=== PATIENT | male | born 1960 | race African-American/Black ===

== ENCOUNTER 2017-06-07 10:42 | Emergency (ER) | payer BC ==
--- NOTE | 2017-06-07 12:21 | RAD ---
CHEST ONE VIEW: History: Dyspnea. Comparison: None. FINDINGS: There is a linear radiopacity in the right middle lobe peripherally. Lungs are otherwise clear. No pn eumothorax or effusion. Cardiac silhouette and mediastinal contours within normal limits. IMPRESSION: Linear opacity in the periphery of the right lower lobe, likely atelectasis. POS: [facility]
[2017-06-07 12:51] LABS: #Basophils 0.1 thou/uL (0.0-0.2); #Eosinphils 0.1 thou/uL (0.0-0.7); #Lymphocytes 0.6 thou/uL (1.20-3.40); #Monocytes 0.6 thou/uL (0.11-0.59); #Neutrophils 5.7 thou/uL (1.40-6.50); %Basophils 0.8 % (0.0-1.0); %Eosinophils 1.5 % (0.0-10.0); %Lymphocytes 8.1 % (21.0-51.0); %Monocytes 8.5 % (0.0-10.0); %Neutrophils 81.1 % (42.0-75.0); Hemoglobin 16.1 g/dL (14.0-18.0); Mean Corpuscular HGB CONC 34.2 g/dL (32.0-36.0); Mean Corpuscular Hemoglobin 31.8 pg (27.0-31.0); Mean Corpuscular Volume 92.8 fl (80.0-94.0); Platelet Count 172 thou/uL (130-400); RBC Distribution Width 11.5 % (11.5-14.5); Red Blood Cell (RBC) Count 5.07 mill/uL (4.70-6.10)
[2017-06-07 13:07] LABS: ALT (SGPT) 21 U/L (8-55); AST (SGOT) 15 U/L (5-34); Alkaline Phosphatase 103 U/L (40-150); Anion Gap 16 mmol/L (10-20); BUN (Urea Nitrogen) 14 mg/dL (8.4-25.7); Bilirubin, Total 0.7 mg/dL (0.2-1.2); Calc. Creatinine Clearance 0 mL/min (70-130); Calcium 9.7 mg/dL (7.8-10.44); Carbon Dioxide 21 mmol/L (22-29); Chloride 103 mmol/L (98-107); Estimated GFR-MDRD 82; Globulin 3.4 g/dL (2.4-3.5); Glucose 295 mg/dL (70-105); Protein, Total 7.4 g/dL (6.0-8.3); Sodium 136 mmol/L (136-145)
[2017-06-07 13:13] LABS: CKMB 0.7 ng/mL (0-6.6); Troponin I Less than 0.010 ng/mL (< 0.028)
== END 2017-06-07 13:55 | disposition home or self-care (01) ==
LOC: ERS 10:42
DX: J18.9 Pneumonia, unspecified organism (principal); E11.9 Type 2 diabetes mellitus without complications; F17.210 Nicotine dependence, cigarettes, uncomplicated; Z79.84 Long term (current) use of oral hypoglycemic drugs
CPT/HCPCS: 36415; 71045; 80053; 82553; 84484; 85025; 93005; 99406

== ENCOUNTER 2017-10-02 09:28 | Emergency (ER) | payer BC ==
[2017-10-02] MEDS ORDERED: Ketorolac Tromethamine 60 MG/2 ML VIAL ONE (09:52)
== END 2017-10-02 10:16 | disposition home or self-care (01) ==
LOC: ERS 09:28
DX: K13.0 Diseases of lips (principal); E78.5 Hyperlipidemia, unspecified; E11.9 Type 2 diabetes mellitus without complications; F17.210 Nicotine dependence, cigarettes, uncomplicated
CPT/HCPCS: 96372; J1885

== ENCOUNTER 2017-10-15 11:41 | Outpatient (CLI) | payer BC | END 2017-10-15 11:42 | disposition home or self-care (01) | LOC: BICRAD 11:41 | PROVIDERS: ATTEND Family Medicine | DX: M54.16 Radiculopathy, lumbar region (principal) ==

== ENCOUNTER 2018-02-01 16:11 | Emergency (ER) | payer BC ==
--- NOTE | 2018-02-01 18:22 | RAD ---
THREE VIEWS LEFT SHOULDER: 02/01/18 HISTORY: Left shoulder pain for three weeks. Left shoulder joint pain. FINDINGS: There is minimal osteoarthritis involving the left acromioclavicular joint. There is no fracture, dis location, or other osseous abnormality. IMPRESSION: Minimal left acromioclavicular joint osteoarthritis. There is no acute osseous abnormality demonstrat ed. POS: [facility]
== END 2018-02-01 17:35 | disposition home or self-care (01) ==
LOC: ERS 16:11
DX: M54.10 Radiculopathy, site unspecified (principal); E78.5 Hyperlipidemia, unspecified; E11.9 Type 2 diabetes mellitus without complications; F17.210 Nicotine dependence, cigarettes, uncomplicated; Z79.84 Long term (current) use of oral hypoglycemic drugs; Z79.899 Other long term (current) drug therapy

== ENCOUNTER 2018-06-17 11:23 | Emergency (ER) | payer BC ==
[2018-06-17 11:56] LABS: #Basophils 0.1 thou/uL (0.0-0.2); #Eosinphils 0.3 thou/uL (0.0-0.7); #Lymphocytes 2.2 thou/uL (1.20-3.40); #Monocytes 0.4 thou/uL (0.11-0.59); #Neutrophils 4.3 thou/uL (1.40-6.50); %Basophils 1.6 % (0.0-1.0); %Lymphocytes 30.4 % (21.0-51.0); %Monocytes 5.5 % (0.0-10.0); %Neutrophils 58.6 % (42.0-75.0); Hemoglobin 14.2 g/dL (14.0-18.0); Mean Corpuscular HGB CONC 32.9 g/dL (32.0-36.0); Mean Corpuscular Hemoglobin 29.9 pg (27.0-31.0); Platelet Count 201 thou/uL (130-400); RBC Distribution Width 12.1 % (11.5-14.5); Red Blood Cell (RBC) Count 4.73 mill/uL (4.70-6.10); White Blood Cell (WBC) Count 7.3 thou/uL (4.8-10.8)
[2018-06-17 12:19] LABS: ALT (SGPT) 15 U/L (8-55); AST (SGOT) 10 U/L (5-34); Albumin 4.1 g/dL (3.5-5.0); Alkaline Phosphatase 92 U/L (40-150); Anion Gap 13 mmol/L (10-20); BUN (Urea Nitrogen) 12 mg/dL (8.4-25.7); Bilirubin, Total 0.5 mg/dL (0.2-1.2); CK (CPK) 93 U/L (30-200); Calc. Creatinine Clearance 0 mL/min (70-130); Calcium 9.7 mg/dL (7.8-10.44); Carbon Dioxide 25 mmol/L (22-29); Chloride 102 mmol/L (98-107); Estimated GFR-MDRD 72; Globulin 3.4 g/dL (2.4-3.5); Glucose 296 mg/dL (70-105); Potassium 4.3 mmol/L (3.5-5.1); Protein, Total 7.5 g/dL (6.0-8.3); Sodium 136 mmol/L (136-145)
--- NOTE | 2018-06-17 12:26 | RAD ---
FRONTAL VIEW CHEST: COMPARISON: 06/07/2017. INDICATION: Chest pain. FINDINGS: There is no consolidation, effusion, or discrete pneumothorax. The cardiac silhouette is normal in s ize. IMPRESSION: No focal consolidation. POS: [facility]
[2018-06-17] MEDS ORDERED: Nitroglycerin 0.4 MG TAB 1 EACH ONE (12:47)
== END 2018-06-17 16:20 | disposition home or self-care (01) ==
LOC: ERS 11:23
DX: R07.9 Chest pain, unspecified (principal); E11.9 Type 2 diabetes mellitus without complications; E78.5 Hyperlipidemia, unspecified; F17.210 Nicotine dependence, cigarettes, uncomplicated
CPT/HCPCS: 36415; 71045; 80053; 82550; 84484; 85025; 85379; 93005; 94760; 96360

== ENCOUNTER 2018-09-01 00:03 | Outpatient (CLI) | payer BC ==
[2018-09-01 11:04] LABS: Hemoglobin 14.6 g/dL (14.0-18.0); Mean Corpuscular HGB CONC 33.6 g/dL (32.0-36.0); Mean Platelet Volume 9.5 fL (7.4-10.4); Platelet Count 239 thou/uL (130-400); RBC Distribution Width 11.6 % (11.5-14.5); Red Blood Cell (RBC) Count 4.72 mill/uL (4.70-6.10); White Blood Cell (WBC) Count 9.6 thou/uL (4.8-10.8)
[2018-09-01 11:24] LABS: Anion Gap 14 mmol/L (10-20); BUN (Urea Nitrogen) 23 mg/dL (8.4-25.7); Calc. Creatinine Clearance 0 mL/min (70-130); Calcium 10.1 mg/dL (7.8-10.44); Carbon Dioxide 27 mmol/L (22-29); Chloride 99 mmol/L (98-107); Estimated GFR-MDRD 68; Glucose 214 mg/dL (70-105); Potassium 3.6 mmol/L (3.5-5.1); Sodium 136 mmol/L (136-145)
--- NOTE | 2018-09-01 21:26 | EKG ---
Test Reason : Blood Pressure : / mmHG Vent. Rate : 106 BPM Atrial Rate : 106 BPM P-R Int : 120 ms QRS Dur : 072 ms QT Int : 342 ms P-R-T Axes : 066 073 048 degrees QTc Int : 454 ms Sinus tachycardia Anterior infarct , age undetermined Abnormal ECG When compared with ECG of 17-JUN-2018 11:32, Nonspecific T wave abnormality, improved in Inferior leads Confirmed by KAROL ROMO, DR. Gresham (4) on 09/01/2018 9:25:47 PM Referred By: DOM Confirmed By:DR. Marga ROBERSON MD
== END 2018-09-01 00:04 | disposition home or self-care (01) ==
LOC: LABBT 00:03
PROVIDERS: ATTEND Neurological Surgery
DX: Z01.818 Encounter for other preprocedural examination (principal); M47.12 Other spondylosis with myelopathy, cervical region
CPT/HCPCS: 80048; 85027; 93005; 93010

== ENCOUNTER 2018-09-05 07:04 | Day surgery (SDC) | payer BC ==
[2018-09-01 09:44] VITALS: BMI 26.4
[2018-09-05] MEDS ORDERED: Sodium Chloride 0.9% 10 ML ONE (07:10)
[2018-09-05] MEDS ORDERED: Fentanyl 100 MCG/2 ML VIAL ONE ×3 (08:15→11:51)
[2018-09-05] MEDS ORDERED: Lidocaine 2% Jelly 5 ML TUBE ONE (09:45)
[2018-09-05] MEDS ORDERED: Fentanyl 250 MCG/5 ML VIAL ONE (09:45)
[2018-09-05] MEDS ORDERED: HYDROmorphone 2 MG/ML VIAL ONE (12:15)
[2018-09-05] MEDS ORDERED: HYDROcodone/Acetaminophen 5/325 mg Tablet ONE (14:17)
[2018-09-05] MEDS ORDERED: Lidocaine 1% PF 5 ML VIAL ONE (15:24)
[2018-09-05] MEDS ORDERED: PHENYLEPHRINE-NS 100 MCG/ML 10 ML SYRINGE ONE (15:24)
[2018-09-05] MEDS ORDERED: Glycopyrrolate 0.2 MG/ML 5 ML SYRINGE ONE (15:24)
[2018-09-05] MEDS ORDERED: Dexamethasone 20 MG/5 ML VIAL ONE (15:24)
[2018-09-05] MEDS ORDERED: Rocuronium Bromide 10 MG/ML (10ML VIAL) ONE (15:24)
[2018-09-05] MEDS ORDERED: PROPOFOL 200 MG/20 ML VIAL ONE (15:24)
[2018-09-05] MEDS ORDERED: Ondansetron PF 4 MG/2 ML Vial ONE (15:24)
[2018-09-05] MEDS ORDERED: Ketorolac Tromethamine 30 MG/ML VIAL ONE (15:24)
--- NOTE | 2018-09-06 08:57 | OP ---
DATE OF PROCEDURE: 09/05/2018 FLOATER OPERATOR: José Gardner PA-C PROCEDURES PERFORMED: Anterior cervical diskectomy at C5-C6 and C6-C7, interbody arthrodesis, intervertebral biomechanical device, local morselized autograft, demineralized bone matrix, anterior titanium instrumentation C4 through C7. DESCRIPTION OF PROCEDURE: The patient was brought to the operating room and intubated. He was positioned supine with the head in modest extension on a gel-filled donut. Incision was made in the right precervical area and dissected medial to the sternocleidomastoid muscle and the level was confirmed by x-ray. We debrided the anterior osteophytes, placed distraction across the disk spaces, and completely decompressed the intervertebral disk, decompressing the spinal cord with particular attention at C6-C7. Next, bony endplates were decorticated for purpose of arthrodesis and appropriate-sized intervertebral biomechanical PEEK device was brought into the field and filled with demineralized bone matrix and local morselized autograft and tapped in place securely at C5-C6 and C6-C7. Next, the anterior plate was brought into the field and secured to C5, C6, and C7 using two 14-mm screws at each level. The wound was then extensively irrigated and maximum hemostasis was secured and the wound was closed in anatomic layers. Job ID: [id number]
== END 2018-09-05 14:47 | disposition home or self-care (01) ==
LOC: SDC 07:04
PROVIDERS: ATTEND Neurological Surgery
PROC: 0RG20A0 Fusion of 2 or more Cervical Vertebral Joints with Interbody Fusion Device, Anterior Approach, Anterior Column, Open Approach (ICD-10-PCS; principal; 2018-09-05)
PROC: 0RB30ZZ Excision of Cervical Vertebral Disc, Open Approach (ICD-10-PCS; principal; 2018-09-05)
DX: M50.022 Cervical disc disorder at C5-C6 level with myelopathy (principal); M47.12 Other spondylosis with myelopathy, cervical region; E11.9 Type 2 diabetes mellitus without complications; E78.5 Hyperlipidemia, unspecified; Z79.84 Long term (current) use of oral hypoglycemic drugs; Z79.899 Other long term (current) drug therapy
CPT/HCPCS: 76000; C1713; C1776; J0131; J1170; J3010; J3490

== ENCOUNTER 2018-09-10 12:26 | Emergency (ER) | payer BC | END 2018-09-10 13:15 | disposition home or self-care (01) | LOC: ERS 12:26 | DX: Z48.817 Encounter for surgical aftercare following surgery on the skin and subcutaneous tissue (principal); E78.5 Hyperlipidemia, unspecified; E11.9 Type 2 diabetes mellitus without complications; F17.210 Nicotine dependence, cigarettes, uncomplicated | CPT/HCPCS: 99282 ==

== ENCOUNTER 2018-09-20 16:04 | Outpatient (CLI) | payer BC ==
--- NOTE | 2018-09-20 16:21 | RAD ---
XR Cerv Sp Ap Lat STANDARD: 09/20/2018 12:00 AM CLINICAL INDICATION: Cervical myelopathy COMPARISON: None. FINDINGS: Fracture:No fracture. There is anterior fusion of C5-C7 with anterior plate, vertebral body screws, and intervening disc sp sam prostheses at C5-6 and C6-7. No acute hardware complication is visualized. Mild multilevel degenerative change. Lateral masses of C1 are appropriately aligned. Imaged aspects o f dens are intact. Incidental findings:Atherosclerosis IMPRESSION: 1. Postoperative cervical spine without acute hardware complication.
== END 2018-09-20 16:05 | disposition home or self-care (01) ==
LOC: TBSIIMAG 16:04
PROVIDERS: ATTEND Neurological Surgery
DX: M47.12 Other spondylosis with myelopathy, cervical region (principal); Z98.890 Other specified postprocedural states
CPT/HCPCS: 72040

== ENCOUNTER 2018-10-07 13:07 | Outpatient (CLI) | payer BC ==
[~2018-10-07 13:07] MED LIST: ISOVUE-370 76%-LOCM 1 ML ONE
--- NOTE | 2018-10-07 14:39 | CT ---
CT ABDOMEN WITH AND WITHOUT IV CONTRAST: 10/07/2018 HISTORY: Left lower quadrant abdominal mass. The patient reports left lower quadrant abdominal pain and swell ing with radiation of symptoms to left flank and hip. FINDINGS: There is linear atelectasis present at the right lung base. The lung bases are otherwise clear. A 1 .8 cm fluid density cyst lesion is seen in the mid portion left kidney, compatible with a cyst. Tiny , subcentimeter, oum-craor-fa-characterize, hypodense lesions are seen in the superior pole right kid zakia and inferior pole left kidney. No enhancing renal lesion is present. The liver, spleen, pancreas, and bilateral adrenal glands demonstrate a normal CT appearance. Vascular calcifications are seen in the abdominal aorta and visualized iliac arteries. There is no e vidence of an aortic dissection. A normal caliber retrocecal appendix is seen. A small to moderate amount of retained material is seen in the visualized colon. Opacified loo ps of small bowel are normal in caliber. No free fluid, fluid collection, or lymphadenopathy is seen in the abdomen. Imaging of the pelvis was not performed with this examination. The osseous structures have a normal appearance with minimal osteophytes present. IMPRESSION: 1. Small left renal cyst. No renal or ureteral calculi are seen bilaterally, and there is no hydron ephrosis. 2. No CT evidence of appendicitis. 3. No acute findings are seen in the abdomen or pelvis. 4. Small to moderate amount of retained fecal material in the colon. 5. Imaging of the pelvis was not performed. POS: [facility]
== END 2018-10-07 13:08 | disposition home or self-care (01) ==
LOC: BICCT 13:07
PROVIDERS: ATTEND Family Medicine
DX: R19.04 Left lower quadrant abdominal swelling, mass and lump (principal); N28.1 Cyst of kidney, acquired
CPT/HCPCS: 74170; Q9966

== ENCOUNTER 2018-11-01 15:58 | Outpatient (CLI) | payer BC ==
--- NOTE | 2018-11-01 16:19 | RAD ---
4 views cervical spine. HISTORY: 58-year-old with history of neck surgery and pain. M47.12. AP, lateral, swimmer's and open-mouth odontoid views cervical spine obtained. Comparison made to previous exam from 09/20/2018. There is ACDF and fusion of the C5,C6 and C7 vertebral levels. Lites and screws are in good position. Anterior osteophytes seen at the C4 level. No significant interval changes noted. IMPRESSION: ACDF in the mid and lower cervical spine.
== END 2018-11-01 15:59 | disposition home or self-care (01) ==
LOC: TBSIIMAG 15:58
PROVIDERS: ATTEND Neurological Surgery
DX: M47.12 Other spondylosis with myelopathy, cervical region (principal); Z98.1 Arthrodesis status
CPT/HCPCS: 72040

== ENCOUNTER 2018-11-23 07:31 | Outpatient (CLI) | payer BC ==
--- NOTE | 2018-11-23 08:42 | MRI ---
MRI Lumbar Spine WO Con HISTORY: Back pain radiating to left hip and left leg COMPARISON: None. FINDINGS: The vertebral bodies are normal in height. Disc space height is well preserved. Disc desicc ation changes are seen at L3-4 and L4-5. There is no significant periaortic adenopathy. There is a T2 hyperintense lesion involving the left k idney statistically most likely a cyst. T12-L1: Unremarkable. L1-2: Unremarkable. L2-3: Unremarkable. L3-4: Small central annular disc tear is present no significant canal or foraminal stenosis. L4-5: Disc bulge is present at this level. No significant canal or foraminal stenosis. L5-S1: No significant disc bulge. No signs of canal or foraminal. IMPRESSION: No signs of canal or foraminal stenosis. Central annular disc tear at L3-4
== END 2018-11-23 07:32 | disposition home or self-care (01) ==
LOC: BICMRI 07:31
PROVIDERS: ATTEND Neurological Surgery
DX: M54.16 Radiculopathy, lumbar region (principal)
CPT/HCPCS: 72148

== ENCOUNTER 2019-01-09 12:26 | Emergency (ER) | payer BC ==
[2019-01-09 15:07] LABS: #Basophils 0.1 thou/uL (0.0-0.2); #Eosinphils 0.2 thou/uL (0.0-0.7); #Lymphocytes 2.5 thou/uL (1.20-3.40); #Monocytes 0.6 thou/uL (0.11-0.59); #Neutrophils 5.1 thou/uL (1.40-6.50); %Basophils 1.2 % (0.0-1.0); %Eosinophils 2.7 % (0.0-10.0); %Lymphocytes 29.5 % (21.0-51.0); %Monocytes 6.6 % (0.0-10.0); Mean Corpuscular HGB CONC 34.2 g/dL (32.0-36.0); Mean Corpuscular Hemoglobin 30.6 pg (27.0-31.0); Mean Corpuscular Volume 89.4 fL (78.0-98.0); Mean Platelet Volume 9.4 fL (7.4-10.4); Platelet Count 189 thou/uL (130-400); RBC Distribution Width 11.4 % (11.5-14.5); Red Blood Cell (RBC) Count 4.58 mill/uL (4.70-6.10); White Blood Cell (WBC) Count 8.5 thou/uL (4.8-10.8)
[2019-01-09 15:29] LABS: ALT (SGPT) 7 U/L (8-55); AST (SGOT) 10 U/L (5-34); Alkaline Phosphatase 112 U/L (40-150); Anion Gap 15 mmol/L (10-20); BUN (Urea Nitrogen) 18 mg/dL (8.4-25.7); Bilirubin, Total 0.4 mg/dL (0.2-1.2); Calc. Creatinine Clearance 0 mL/min (70-130); Calcium 10.6 mg/dL (7.8-10.44); Carbon Dioxide 24 mmol/L (22-29); Chloride 101 mmol/L (98-107); Estimated GFR-MDRD 73; Globulin 3.8 g/dL (2.4-3.5); Glucose 347 mg/dL (70-105); Potassium 4.4 mmol/L (3.5-5.1); Protein, Total 7.8 g/dL (6.0-8.3); Sodium 136 mmol/L (136-145)
--- NOTE | 2019-01-09 16:15 | CT ---
CT BRAIN WITHOUT CONTRAST: HISTORY: Headache worsened by bending. FINDINGS: There are no previous exams for comparison. No evidence of acute infarct, hemorrhage, midline shift, or abnormal extraaxial fluid collections is seen. The ventricular size is appropriate and the basilar cisterns patent. The bony calvarium is in tact. The visualized paranasal sinuses and mastoid air cells are well aerated. IMPRESSION: No CT evidence of acute intracranial process. POS: [facility]
== END 2019-01-09 16:58 | disposition home or self-care (01) ==
LOC: ERS 12:26
DX: R60.0 Localized edema (principal); E11.65 Type 2 diabetes mellitus with hyperglycemia; E78.5 Hyperlipidemia, unspecified; F17.210 Nicotine dependence, cigarettes, uncomplicated; Z79.84 Long term (current) use of oral hypoglycemic drugs
CPT/HCPCS: 36415; 70450; 80053; 83880; 85025

== ENCOUNTER 2019-01-17 10:42 | Outpatient (CLI) | payer BC ==
--- NOTE | 2019-01-17 13:05 | RAD ---
LEFT HIP TWO VIEWS: 01/17/19 HISTORY: Arthralgia of the left hip. FINDINGS/IMPRESSION: No fracture, dislocation, or bony destruction seen. Mild degenerative changes are present. POS: [facility]
== END 2019-01-17 10:43 | disposition home or self-care (01) ==
LOC: BICRAD 10:42
PROVIDERS: ATTEND Family Medicine
DX: M25.552 Pain in left hip (principal); M16.12 Unilateral primary osteoarthritis, left hip

== ENCOUNTER 2019-02-03 09:47 | Outpatient (CLI) | payer BC ==
--- NOTE | 2019-02-03 11:45 | RAD ---
LEFT FEMUR 2 VIEWS: INDICATION: Left leg pain. COMPARISON: None. IMPRESSION: No acute fracture or subluxation is evident. Soft tissues are normal-appearing. There is mild degen erative arthrosis of the left hip. POS: [facility]
== END 2019-02-03 09:48 | disposition home or self-care (01) ==
LOC: BICRAD 09:47
PROVIDERS: ATTEND Family Medicine
DX: M79.652 Pain in left thigh (principal); M16.12 Unilateral primary osteoarthritis, left hip
CPT/HCPCS: 36415; 80061; 80076; 82947; 83036

== ENCOUNTER 2019-04-17 10:34 | Observation (INO) | payer BC ==
[2019-04-17] MEDS ORDERED: Aspirin Chewable 81 MG TAB ONE (10:57)
[2019-04-17 11:01] LABS: #Basophils 0.1 thou/uL (0.0-0.2); #Eosinphils 0.3 thou/uL (0.0-0.7); #Lymphocytes 2.5 thou/uL (1.20-3.40); #Monocytes 0.6 thou/uL (0.11-0.59); #Neutrophils 4.8 thou/uL (1.40-6.50); %Basophils 0.8 % (0.0-1.0); %Eosinophils 3.6 % (0.0-10.0); %Lymphocytes 30.1 % (21.0-51.0); %Monocytes 7.3 % (0.0-10.0); %Neutrophils 58.3 % (42.0-75.0); Hemoglobin 12.2 g/dL (14.0-18.0); Mean Corpuscular HGB CONC 34.3 g/dL (32.0-36.0); Mean Corpuscular Hemoglobin 30.8 pg (27.0-31.0); Mean Corpuscular Volume 89.7 fL (78.0-98.0); Mean Platelet Volume 8.9 fL (7.4-10.4); Platelet Count 232 thou/uL (130-400); RBC Distribution Width 11.2 % (11.5-14.5); Red Blood Cell (RBC) Count 3.96 mill/uL (4.70-6.10); White Blood Cell (WBC) Count 8.2 thou/uL (4.8-10.8)
--- NOTE | 2019-04-17 11:11 | RAD ---
Exam: Chest one view HISTORY:Chest Comparison: 06/17/2018 FINDINGS: Cardiac silhouette: Normal Aorta: Unremarkable Pulmonary vessels: Normal Costophrenic angles: Clear LUNGS: No masses or consolidation. Pneumothorax: None Osseous abnormalities: None IMPRESSION: No acute cardiopulmonary process.
[2019-04-17 11:33] LABS: ALT (SGPT) 11 U/L (8-55); AST (SGOT) 12 U/L (5-34); Albumin 4.3 g/dL (3.5-5.0); Alkaline Phosphatase 83 U/L (40-110); Anion Gap 11 mmol/L (10-20); BUN (Urea Nitrogen) 21 mg/dL (8.4-25.7); Bilirubin, Total 0.6 mg/dL (0.2-1.2); CK (CPK) 78 U/L (30-200); Calc. Creatinine Clearance 0 mL/min (70-130); Calcium 9.8 mg/dL (7.8-10.44); Carbon Dioxide 27 mmol/L (22-29); Chloride 103 mmol/L (98-107); Estimated GFR-MDRD 84; Globulin 3.2 g/dL (2.4-3.5); Glucose 217 mg/dL (70-105); Lipase 62 U/L (8-78); Potassium 3.9 mmol/L (3.5-5.1); Protein, Total 7.5 g/dL (6.0-8.3); Sodium 137 mmol/L (136-145)
[2019-04-17] MEDS ORDERED: Dextrose 50% Abboject 50 ML SYRINGE SLOW IVP PRN (13:10)
[2019-04-17] MEDS ORDERED: Dextrose 5% in Water 1,000 ML IV PRN (13:10)
[2019-04-17] MEDS ORDERED: HumaLOG 300 UNITS/3 ML VIAL SC PRN (13:10)
[2019-04-17] MEDS ORDERED: Gabapentin 300 MG CAP PO PRN (13:11)
--- NOTE | 2019-04-17 13:49 | HP ---
PRIMARY CARE PROVIDER: Jonathan Darby MD. The patient referred to the [facility] Hospitalist Service by [facility] for chest pain rule out MA. The patient has a vague right-sided chest pain that goes into his right shoulder blade. He states it has been present continuously for a week. He states it is similar to a left-sided chest pain that he had previously which required a C-spine surgery. He notes no radiation except as described. He has had no nausea with it. No shortness of breath. No chills or sweats. PAST MEDICAL HISTORY: Pertinent for diabetes mellitus type 2, high cholesterol. CURRENT MEDICATIONS: 1. Metformin 500 mg twice a day. 2. Glipizide 10 mg twice a day. 3. Gabapentin 400 mg twice a day. 4. Atorvastatin 20 mg two a day. 5. Januvia 100 mg once a day. ALLERGIES: NO KNOWN DRUG ALLERGIES. PAST SURGICAL HISTORY: C5-C6, C6-C7 diskectomy etc, in August of this year. FAMILY HISTORY: Mother and father had diabetes. Mother had heart failure. SOCIAL HISTORY: . Smokes half a pack a day. Occasional alcohol. Full code status. , next of kin. REVIEW OF SYSTEMS: GENERAL: He says he has had occasional night sweats lifelong. No headaches or dizziness. EYES: Nearsighted. No double vision or blurred vision. EARS, NOSE AND THROAT: No ear pain or drainage. No nasal bleeding. No trouble swallowing. CARDIAC: See present illness. RESPIRATION: No cough, wheezing, or asthma. GASTROINTESTINAL: He has occasional diarrhea, which he relates to his metformin. No nausea, vomiting, or abdominal pain. GENITOURINARY: No hematuria, dysuria, or nocturia. MUSCULOSKELETAL: He has pain in his left thigh that radiates into his low back. He has had a lumbar MRI, has some arthritis there. NEUROLOGICAL: Post C-spine surgery for cervical radiculopathy. PSYCHIATRIC: No anxiety or depression. SKIN: No bruising, bleeding, or rash. HEME/LYMPH: No tender or swollen lymph nodes in the axilla, inguinal, or cervical area. PHYSICAL EXAMINATION: GENERAL: Alert, oriented, pleasant, cooperative man in no distress. VITAL SIGNS: Blood pressure 112/70, pulse 89, respirations 18, and temperature 98.2. HEAD, EYES, EARS, NOSE, AND THROAT: Reveal pupils are equal, round, and reactive to light. Extraocular movements are intact. Sclerae are white. Tympanic membranes clear. Nose is clear. Oral mucous membranes are wet. Dental hygiene is adequate. NECK: Supple without jugular venous distention, adenopathy, or thyromegaly. CHEST: Clear to auscultation and percussion. HEART: Regular rate and rhythm. First and second second heart sounds are clear. There are no appreciated murmurs or gallops. ABDOMEN: Soft. Bowel sounds are normal. There is no hepatosplenomegaly. No mass. No rebound. EXTREMITIES: No cyanosis, clubbing, or edema. Pulses, carotid, radial, femoral, and dorsalis pedis pulses intact. SKIN: Warm and dry. No bruises. No rash. HEME/LYMPH: No tender or swollen lymph nodes, axilla, inguinal, or cervical area. NEUROLOGICAL: Cranial nerves 2 through 12 are intact. Moves all extremities. Deep tendon reflexes markedly diminished. DIAGNOSTIC DATA: EKG, regular sinus rhythm, poor R-wave progression in the precordial leads, no acute ST-T abnormality reviewed by me. Chest x-ray, no cardiomegaly, CHF, or infiltrate reviewed by myself. LABORATORY DATA: CBC; hemoglobin 12.2, white count 8.2, platelet count 232,000. Comprehensive metabolic profile normal except for a blood sugar of 217. BNP normal. Troponin normal. ADMITTING DIAGNOSES: 1. Atypical chest pain, suspect related to previous C5-C6, C6-C7 radiculopathy and surgical problems; however, with his history of elevated blood sugars, elevated cholesterol, smoking history, we will do a nuclear medicine Cardiolite stress test. 2. Diabetes mellitus type 2 with peripheral neuropathy. 3. Dyslipidemia. 4. Cervical radiculopathy. Job ID: [id number]
--- NOTE | 2019-04-17 13:54 | ULT ---
EXAM: US Gallbladder RUQ CLINICAL HISTORY: Right upper quadrant pain. COMPARISON: None. FINDINGS: Pancreas: Limited evaluation due to bowel gas. The head of pancreas is grossly unremarkable Liver:Normal echotexture. No hepatic masses or intrahepatic biliary dilatation. Right hepatic lobe me asures 15.2 cm Gallbladder: No sonographic evidence of cholelithiasis, gallbladder wall thickening or pericholecysti c fluid. Clemente's sign:Negative Portal Vein: Patent. Appropriate directional flow Bile ducts: CBD diameter is 0.3 cm Right kidney: No hydronephrosis. Right kidney measures 10.2 cm in length. IMPRESSION: Unremarkable exam.
[2019-04-17 14:10] LABS: Troponin I Less than 0.010 ng/mL (< 0.028)
[2019-04-17] MEDS ORDERED: HYDROcodone/Acetaminophen 10/325 mg Tablet PO PRN (16:27)
[2019-04-17 16:43] VITALS: BMI 23.6
[2019-04-17] MEDS: glyBURIDE 5 MG TAB PO SCH (20:58)
[2019-04-18] MEDS ORDERED: Aspirin 325 mg Enteric Coated Tablet PO SCH (09:00)
[2019-04-18] MEDS ORDERED: Famotidine 20 MG TAB PO SCH (09:00)
[2019-04-18] MEDS ORDERED: ADENOSINE 60 MG/20 ML VIAL ONE (10:42)
[2019-04-18] MEDS: glyBURIDE 5 MG TAB PO SCH (11:08)
--- NOTE | 2019-04-18 11:34 | NM ---
CARDIAC SPECT: HISTORY: A 58-year-old black male with chest pain, diabetes and dyslipidemia. TECHNIQUE: A myocardial perfusion scan was performed using the single isotope one day protocol with technetium 9 9m sestamibi, and 10 millicuries was injected intravenously for the rest exam followed by 32 millicur ies for the stress study. Pharmacologic stress with adenosine was monitored and interpreted by Dr. Phillip bahena. FINDINGS: Fairly homogeneous tracer distribution is seen in the myocardial segments on stress and rest images w ithout fixed or reversible defects. The left ventricular cavity appears larger on stress compared to rest with an TID ratio of 1.36. GATED SPECT LVEF: 56%. IMPRESSION: TID ratio is 1.36. POS: [facility]
[2019-04-18 12:10] VITALS: BP 116/69; TEMP 97.7
--- NOTE | 2019-04-18 14:47 | DIS ---
DATE OF ADMISSION: 04/17/2019 DATE OF DISCHARGE: 04/18/2019 PRIMARY CARE PROVIDER: Dr. Jonathan Darby. FINAL DIAGNOSES: Noncardiac chest pain, cervical radiculopathy, diabetes mellitus type 2, dyslipidemia, and tobacco abuse. DISCHARGE MEDICINES: Same as home medicines; 1. Hydrocodone 10/325 one t.i.d. p.r.n. pain. 2. Metformin 500 mg twice a day. 3. Glyburide 5 mg p.o. b.i.d. 4. Gabapentin 300 mg p.o. q.i.d. 5. Famotidine 10 mg p.o. daily p.r.n. 6. Lipitor 20 mg a day. ALLERGIES: NO KNOWN DRUG ALLERGIES. DIET: Diabetic. PENDING AT THE TIME OF DISCHARGE: Nothing. CODE STATUS: Full. HOSPITAL COURSE: The patient with a history of recent cervical radiculopathy with an anterior diskectomy C5-6 and C6-7, interbody arthrodesis, etc. in August of this year with similar symptoms on the right side, presents with some right chest numbness and tingling radiating to the back of the neck. His EKG and laboratory were unremarkable for coronary artery disease. However, because of his multiple risk factors, nuclear medicine cardiac stress test was done. He had no reversible changes, LVEF of 56%. No evidence of ischemic change at this time. His vital signs are stable. Blood sugars well controlled. His cardiorespiratory exam is normal. He is being discharged to follow up with Dr. Curtis about possible workup of his C5 through C7 radiculopathy postoperatively. He has been advised to quit smoking because of his multiple risk factors for coronary artery disease. 1. Male. 2. Diabetes. 3. Elevated cholesterol. 4. Tobacco abuse. He will also should follow up with his PCP for monitoring of his blood pressure, diabetes, etc. No consultations. No procedures. Job ID: [id number]
[2019-04-18] MEDS ORDERED: Atorvastatin Calcium 20 MG TAB PO SCH (21:00)
== END 2019-04-18 14:55 | disposition home or self-care (01) ==
LOC: ERS 10:34 → 2SW 13:10
PROVIDERS: ADMIT Internal Medicine; ATTEND Internal Medicine
DX: R07.89 Other chest pain (principal); M54.12 Radiculopathy, cervical region; E11.42 Type 2 diabetes mellitus with diabetic polyneuropathy; E78.5 Hyperlipidemia, unspecified; F17.210 Nicotine dependence, cigarettes, uncomplicated; E78.00 Pure hypercholesterolemia, unspecified; Z79.84 Long term (current) use of oral hypoglycemic drugs; Z79.899 Other long term (current) drug therapy; Z98.1 Arthrodesis status
CPT/HCPCS: 36415; 36416; 71045; 76705; 78452; 80053; 82550; 83690; 83880; 84484; 85025; 85379; 93005; 93017; 94760; 96360; A9500; G0378

== ENCOUNTER 2019-10-12 11:05 | Outpatient (CLI) | payer BC, OTHER ==
[2019-10-12 13:16] LABS: #Basophils 0.1 thou/uL (0.0-0.2); #Eosinphils 0.3 thou/uL (0.0-0.7); #Lymphocytes 2.6 thou/uL (1.20-3.40); #Monocytes 0.6 thou/uL (0.11-0.59); #Neutrophils 6.5 thou/uL (1.40-6.50); %Basophils 1.1 % (0.0-1.0); %Eosinophils 3.2 % (0.0-10.0); %Lymphocytes 25.6 % (21.0-51.0); %Monocytes 5.7 % (0.0-10.0); %Neutrophils 64.4 % (42.0-75.0); Hemoglobin 12.6 g/dL (14.0-18.0); Mean Corpuscular HGB CONC 32.9 g/dL (32.0-36.0); Mean Corpuscular Hemoglobin 30.8 pg (27.0-31.0); Mean Corpuscular Volume 93.8 fL (78.0-98.0); Mean Platelet Volume 9.4 fL (7.4-10.4); Platelet Count 241 thou/uL (130-400); RBC Distribution Width 12.6 % (11.5-14.5); Red Blood Cell (RBC) Count 4.09 mill/uL (4.70-6.10); White Blood Cell (WBC) Count 10.1 thou/uL (4.8-10.8)
[2019-10-12 13:35] LABS: Anion Gap 14 mmol/L (10-20); BUN (Urea Nitrogen) 19 mg/dL (8.4-25.7); Calc. Creatinine Clearance 0 mL/min (70-130); Carbon Dioxide 23 mmol/L (22-29); Chloride 102 mmol/L (98-107); Estimated GFR-MDRD 64; Glucose 239 mg/dL (70-105); Potassium 4.1 mmol/L (3.5-5.1); Sodium 135 mmol/L (136-145)
--- NOTE | 2019-10-12 17:38 | EKG ---
Test Reason : Blood Pressure : / mmHG Vent. Rate : 089 BPM Atrial Rate : 089 BPM P-R Int : 122 ms QRS Dur : 072 ms QT Int : 340 ms P-R-T Axes : 058 034 -03 degrees QTc Int : 413 ms Normal sinus rhythm Normal ECG When compared with ECG of 17-APR-2019 10:44, (Unconfirmed) Criteria for Septal infarct are no longer Present T wave inversion now evident in Inferior leads T wave amplitude has increased in Lateral leads Confirmed by KAROL ROMO, DR. Gresham (4) on 10/12/2019 5:38:24 PM Referred By: TERE Confirmed By:DR. Marga ROBERSON MD
[2019-10-12 18:37] LABS: SARS-CoV-2 MS2 Positive; SARS-CoV-2 N Gene Negative; SARS-CoV-2 S Gene Negative; SARS-CoV-2 orf1ab Negative
== END 2019-10-12 11:06 | disposition home or self-care (01) ==
LOC: LABBT 11:05
PROVIDERS: ATTEND Specialist
DX: Z01.818 Encounter for other preprocedural examination (principal); Z11.59 Encounter for screening for other viral diseases
CPT/HCPCS: 80048; 85025; 87635; 93005; 93010; U0003

== ENCOUNTER 2019-10-16 06:51 | Day surgery (SDC) | payer BC ==
[2019-10-12 11:33] VITALS: BMI 25.7
--- NOTE | 2019-10-16 06:59 | HP ---
HISTORY OF PRESENT ILLNESS: Joesph Gandhi is a 59-year-old black male patient, who is followed by Dr. Jonathan Ramírez. Patient has had previous incision and drainage, excision of a scrotal process. This is over 2 years ago. He has had persistent drainage and discomfort in base of scrotum, perineum, right buttocks, and left buttocks and chronic open wound, left buttocks. Examination in the office reveals that there is a chronically indurated tract extending from the base of the scrotum on the right to the right buttocks with multiple purulent sinuses draining. He has an open wound over his left buttocks. This did not communicate with the anus. This almost appears hidradenitis in appearance. He denies any drainage. Patient is a diabetic. PAST MEDICAL HISTORY: Diabetes mellitus. PAST SURGICAL HISTORY: Noncontributory, except for office excision of the scrotal mass. SOCIAL HISTORY: He smokes a half pack or less a day. Alcohol, occasionally. Patient is employed in maintenance. MEDICATIONS: 1. Atorvastatin. 2. Metformin. 3. Glyburide. ALLERGIES: NONE. REVIEW OF SYSTEMS: 10-point noncontributory. PHYSICAL EXAMINATION: VITAL SIGNS: 134/74, 97, 97 degrees. HEAD, EARS, EYES, NOSE, and THROAT: Unremarkable. LUNGS: Clear to auscultation. CARDIAC: Regular rate and rhythm, without murmur or gallop. ABDOMEN: Soft and nontender. EXTREMITIES: Unremarkable. Base of scrotum to right of midline perineum into the right buttocks, there is a chronic sinus tract with multiple openings, purulent drainage. He has a small, 1.5 cm opening of his left buttocks medially without apparent sinus on palpation. There is no redness. It is tender, however. ASSESSMENT AND PLAN: Probably hidradenitis suppurativa with chronic draining sinus. We would recommend excision and healing by secondary intention. We will plan this as an outpatient next week. He understands risks and benefits and consents. Job ID: [id number]
[2019-10-16] MEDS ORDERED: Clindamycin/D5W 600 mg/50 ml Premix Bag ONE (07:22)
--- NOTE | 2019-10-16 07:38 | RAD ---
Chest 2 views HISTORY: Preop. COMPARISON: 04/17/2019. FINDINGS: Cardiac silhouette and pulmonary vasculature are unremarkable. Mediastinum is midline. No c onfluent airspace consolidation or evidence of pneumothorax. Postoperative changes cervical spine. IMPRESSION : No active cardiopulmonary abnormalities are demonstrated.
[2019-10-16] MEDS ORDERED: Fentanyl 100 MCG/2 ML VIAL ONE (07:42)
[2019-10-16] MEDS ORDERED: Bupivacaine PF 0.5% 30 ML VIAL ONE (09:28)
[2019-10-16] MEDS ORDERED: Lidocaine 2% w/Epinephrine 1:200K 20 ML VIAL ONE (09:28)
[2019-10-16] MEDS ORDERED: Bupivacaine 0.25% HCL 30 ML VIAL ONE (10:08)
[2019-10-16] MEDS ORDERED: Ondansetron PF 4 MG/2 ML Vial ONE (10:42)
[2019-10-16] MEDS ORDERED: Lidocaine 1% PF 5 ML VIAL ONE (10:42)
[2019-10-16] MEDS ORDERED: Rocuronium Bromide 10 MG/ML (10ML VIAL) ONE (10:42)
[2019-10-16] MEDS ORDERED: Esmolol 100 MG/10 ML VIAL ONE (10:42)
[2019-10-16] MEDS ORDERED: PHENYLEPHRINE-NS 100 MCG/ML 10 ML SYRINGE ONE (10:42)
[2019-10-16] MEDS ORDERED: Glycopyrrolate 0.2 MG/ML 5 ML SYRINGE ONE (10:42)
[2019-10-16] MEDS ORDERED: PROPOFOL 200 MG/20 ML VIAL ONE (10:42)
[2019-10-16] MEDS ORDERED: Dexamethasone 20 MG/5 ML VIAL ONE (10:42)
[2019-10-16] MEDS ORDERED: HYDROcodone/Acetaminophen 5/325 mg Tablet ONE (13:33)
--- NOTE | 2019-10-16 18:55 | OP ---
DATE OF PROCEDURE: 10/16/2019 PREOPERATIVE DIAGNOSES: Hidradenitis suppurativa, right para scrotal, right paramedian perineum, right perianal, and right buttocks; and a 3 cm lesion left buttocks, chronic nonhealing. ANESTHESIA: General, local 0.25% Marcaine 60 mL, 0.5% Xylocaine with epinephrine 20 mL, total volume mixture used. PROCEDURE PERFORMED: Excision of skin and subcutaneous tissue hidradenitis suppurativa 14 x 5 cm right scrotal base, perineum, right buttocks. Wound partially closed with 3-0 chromic suture, left open otherwise. Left buttock wound open. DESCRIPTION OF PROCEDURE: The patient was taken to the operating room, where under general anesthesia in the dorsal lithotomy position, buttocks, perianal, perineum, scrotum, penis, and thighs prepared with Betadine and draped in routine fashion. Excision of skin and subcutaneous tissue sharply with 10 blade scalpel in the areas described. Excising underlying subcutaneous purulent tract, chronic sinuses. Gaining hemostasis with the cautery. We irrigated the wound and infiltrated local anesthetic for postoperative pain control. Wound partially closed approximating the superior para scrotal wound with interrupted 3-0 chromic with wound partially left open right buttocks and perineum. Wound packed open, there was a smaller wound in the left buttocks, chronically present, excised. Hemostasis was gained with cautery, left open. The patient tolerated the procedure well. Job ID: [id number]
== END 2019-10-16 13:35 | disposition home or self-care (01) ==
LOC: SDC 06:51
PROVIDERS: ATTEND Specialist
PROC: 0JB90ZZ Excision of Buttock Subcutaneous Tissue and Fascia, Open Approach (ICD-10-PCS; principal; 2019-10-16)
PROC: 0JBB0ZZ Excision of Perineum Subcutaneous Tissue and Fascia, Open Approach (ICD-10-PCS; principal; 2019-10-16)
DX: L73.2 Hidradenitis suppurativa (principal); N49.2 Inflammatory disorders of scrotum; L02.31 Cutaneous abscess of buttock; E11.9 Type 2 diabetes mellitus without complications; E78.5 Hyperlipidemia, unspecified; F17.210 Nicotine dependence, cigarettes, uncomplicated; Z79.84 Long term (current) use of oral hypoglycemic drugs; Z79.899 Other long term (current) drug therapy; Z98.1 Arthrodesis status
CPT/HCPCS: 71046; 88305; J1100; J2001; J2405; J2704; J3010; J3490; S0020

== ENCOUNTER 2021-08-29 14:23 | Outpatient (CLI) | payer BC | END 2021-08-29 14:24 | disposition home or self-care (01) | LOC: BICRAD 14:23 | PROVIDERS: ATTEND Family Medicine | DX: R07.89 Other chest pain (principal) | CPT/HCPCS: 71046 ==

== ENCOUNTER 2021-10-27 11:03 | Emergency (ER) | payer BC | END 2021-10-27 12:17 | disposition home or self-care (01) | LOC: ERS 11:03 | DX: J06.9 Acute upper respiratory infection, unspecified (principal); Z79.899 Other long term (current) drug therapy; Z79.84 Long term (current) use of oral hypoglycemic drugs; E78.5 Hyperlipidemia, unspecified; E11.9 Type 2 diabetes mellitus without complications; F17.210 Nicotine dependence, cigarettes, uncomplicated | CPT/HCPCS: 71045; 93005; 94640; J7620 ==

== ENCOUNTER 2021-11-04 10:04 | Emergency (ER) | payer BC ==
[2021-11-04] MEDS ORDERED: predniSONE 20 MG TAB ONE (11:40)
== END 2021-11-04 11:54 | disposition home or self-care (01) ==
LOC: ERS 10:04
DX: J18.9 Pneumonia, unspecified organism (principal); E78.5 Hyperlipidemia, unspecified; E11.9 Type 2 diabetes mellitus without complications; F17.210 Nicotine dependence, cigarettes, uncomplicated; Z20.822 Contact with and (suspected) exposure to COVID-19; Z79.84 Long term (current) use of oral hypoglycemic drugs; Z79.899 Other long term (current) drug therapy
CPT/HCPCS: 71045; J7512; U0003; U0005

== ENCOUNTER 2022-05-21 15:01 | Inpatient (IN) | payer BC ==
[~2022-05-21 15:01] MED LIST changes: -ISOVUE-370 76%-LOCM 1 ML ONE; +Iopamidol-370 76% 500 ML 1 ML ONE
[2022-05-21 15:54] LABS: #Eosinphils 0.2 thou/uL (0.0-0.7); #Lymphocytes 0.9 thou/uL (1.20-3.40); #Monocytes 0.7 thou/uL (0.11-0.59); #Neutrophils 5.1 thou/uL (1.40-6.50); %Eosinophils 2.6 % (0.0-10.0); %Lymphocytes 13.3 % (21.0-51.0); %Monocytes 9.9 % (0.0-10.0); %Neutrophils 74.2 % (42.0-75.0); Hemoglobin 13.3 g/dL (14.0-18.0); Mean Corpuscular HGB CONC 32.2 g/dL (32.0-36.0); Mean Corpuscular Hemoglobin 29.2 pg (27.0-31.0); Mean Corpuscular Volume 90.6 fl (78.0-98.0); Mean Platelet Volume 9.5 fL (7.4-10.4); Platelet Count 163 10x3/uL (130-400); RBC Distribution Width 12.6 % (11.5-14.5); Red Blood Cell (RBC) Count 4.55 mill/uL (4.70-6.10); White Blood Cell (WBC) Count 6.9 10x3/uL (4.8-10.8)
[2022-05-21 16:21] LABS: ALT (SGPT) 18 U/L (8-55); AST (SGOT) 17 U/L (5-34); Albumin 4.1 g/dL (3.4-4.8); Alkaline Phosphatase 99 U/L (40-110); Anion Gap 13 mmol/L (10-20); BUN (Urea Nitrogen) 14 mg/dL (8.4-25.7); Bilirubin, Total 0.5 mg/dL (0.2-1.2); Calc. Creatinine Clearance 0 mL/min (70-130); Calcium 9.6 mg/dL (7.8-10.44); Carbon Dioxide 25 mmol/L (23-31); Chloride 99 mmol/L (98-107); Estimated GFR 52; Globulin 3.9 g/dL (2.4-3.5); Glucose 210 mg/dL (80-115); Potassium 4.2 mmol/L (3.5-5.1); Sodium 133 mmol/L (136-145)
[2022-05-21] MEDS ORDERED: cefTRIAXone\\ROCEPHIN 2 GM VIAL ONE (17:08)
[2022-05-21] MEDS ORDERED: Azithromycin 500 MG VIAL ONE (17:08)
[2022-05-21] MEDS ORDERED: Acetaminophen 325 MG TAB PO PRN (18:12)
[2022-05-21] MEDS ORDERED: Senokot S 8.6-50 MG TAB PO PRN (18:12)
[2022-05-21] MEDS ORDERED: Ondansetron ODT 4 MG TAB PO PRN (18:12)
[2022-05-21 18:56] LABS: Lactic Acid 2.5 mmol/L (0.5-2.2)
[2022-05-21 19:20] LABS: SARS-CoV-2 NAA Rapid Test DETECTED (NotDetected)
[2022-05-21] MEDS ORDERED: Acetaminophen 500 MG TAB ONE (19:28)
[2022-05-21] MEDS: Famotidine 20 MG TAB PO SCH (20:59)
[2022-05-21] MEDS: Atorvastatin Calcium 20 MG TAB PO SCH (20:59)
[2022-05-21] MEDS: Gabapentin 300 MG CAP PO SCH (21:00)
[2022-05-21] MEDS: metFORMIN 500 MG TAB PO SCH (21:00)
[2022-05-21] MEDS: Nicotine 14 MG PATCH TD SCH (21:16)
[2022-05-21 21:24] VITALS: BMI 25.7
[2022-05-21] MEDS ORDERED: REMDESIVIR 200 MG in Sodium Chloride 0.9% 250 ML 210 ML IV SCH (21:30)
[2022-05-22] MEDS: Albuterol 200 PUFF (6.7GM INHALER) INH SCH ×4 (00:34→18:24)
[2022-05-22] MEDS ORDERED: Dextrose 5% in Water 1,000 ML IV PRN (04:45)
[2022-05-22] MEDS ORDERED: HumaLOG 300 UNITS/3 ML VIAL SC PRN ×2 (04:45)
[2022-05-22] MEDS ORDERED: Dextrose 50% Abboject 50 ML SYRINGE IVP PRN (04:45)
[2022-05-22 07:03] LABS: #Basophils 0.1 thou/uL (0.0-0.2); #Eosinphils 0.5 thou/uL (0.0-0.7); #Lymphocytes 1.2 thou/uL (1.20-3.40); #Monocytes 0.8 thou/uL (0.11-0.59); #Neutrophils 3.6 thou/uL (1.40-6.50); %Eosinophils 8.7 % (0.0-10.0); %Lymphocytes 19.4 % (21.0-51.0); %Monocytes 12.6 % (0.0-10.0); %Neutrophils 58.2 % (42.0-75.0); Hemoglobin 12.1 g/dL (14.0-18.0); Mean Corpuscular HGB CONC 31.9 g/dL (32.0-36.0); Mean Corpuscular Hemoglobin 29.4 pg (27.0-31.0); Mean Corpuscular Volume 92.3 fl (78.0-98.0); Platelet Count 141 10x3/uL (130-400); RBC Distribution Width 12.4 % (11.5-14.5); Red Blood Cell (RBC) Count 4.12 mill/uL (4.70-6.10); White Blood Cell (WBC) Count 6.2 10x3/uL (4.8-10.8)
[2022-05-22 07:13] LABS: Anion Gap 14 mmol/L (10-20); BUN (Urea Nitrogen) 13 mg/dL (8.4-25.7); Calc. Creatinine Clearance 97 mL/min (70-130); Calcium 8.8 mg/dL (7.8-10.44); Carbon Dioxide 21 mmol/L (23-31); Chloride 106 mmol/L (98-107); Estimated GFR 86; Glucose 120 mg/dL (80-115); Potassium 4.1 mmol/L (3.5-5.1); Sodium 137 mmol/L (136-145)
[2022-05-22 07:14] LABS: ALT (SGPT) 14 U/L (8-55); AST (SGOT) 14 U/L (5-34)
[2022-05-22] MEDS: metFORMIN 500 MG TAB PO SCH ×2 (09:30→20:47)
[2022-05-22] MEDS: Gabapentin 300 MG CAP PO SCH ×2 (09:30→20:47)
[2022-05-22] MEDS: Famotidine 20 MG TAB PO SCH ×2 (09:30→20:47)
[2022-05-22] MEDS: Azithromycin 500 MG in Sodium Chloride 0.9% 250 ML 250 ML IVPB SCH (16:23)
[2022-05-22] MEDS ORDERED: Dexamethasone 4 mg/ml Vial SLOW IVP SCH (17:00)
[2022-05-22] MEDS: Nicotine 14 MG PATCH TD SCH (17:38)
[2022-05-22] MEDS: cefTRIAXone\\ROCEPHIN 2 GM in Sodium Chloride 0.9% 100 ML IVPB SCH (18:15)
[2022-05-22] MEDS: Atorvastatin Calcium 20 MG TAB PO SCH (20:47)
[2022-05-22] MEDS: REMDESIVIR 100 MG in Sodium Chloride 0.9% 250 ML 230 ML IV SCH (20:48)
[2022-05-23] MEDS: Albuterol 200 PUFF (6.7GM INHALER) INH SCH ×4 (01:49→21:53)
[2022-05-23 06:01] LABS: #Monocytes 0.2 thou/uL (0.11-0.59); #Neutrophils 4.2 thou/uL (1.40-6.50); %Basophils 0.2 % (0.0-1.0); %Eosinophils 0.7 % (0.0-10.0); %Lymphocytes 18.3 % (21.0-51.0); %Monocytes 4.2 % (0.0-10.0); %Neutrophils 76.6 % (42.0-75.0); Hemoglobin 12.2 g/dL (14.0-18.0); Mean Corpuscular HGB CONC 33.4 g/dL (32.0-36.0); Mean Corpuscular Hemoglobin 30.2 pg (27.0-31.0); Mean Corpuscular Volume 90.2 fl (78.0-98.0); Mean Platelet Volume 9.2 fL (7.4-10.4); Platelet Count 159 10x3/uL (130-400); RBC Distribution Width 12.4 % (11.5-14.5); Red Blood Cell (RBC) Count 4.05 mill/uL (4.70-6.10); White Blood Cell (WBC) Count 5.4 10x3/uL (4.8-10.8)
[2022-05-23 06:29] LABS: ALT (SGPT) 15 U/L (8-55); AST (SGOT) 14 U/L (5-34); Anion Gap 13 mmol/L (10-20); BUN (Urea Nitrogen) 19 mg/dL (8.4-25.7); Calc. Creatinine Clearance 74 mL/min (70-130); Calcium 9.3 mg/dL (7.8-10.44); Carbon Dioxide 23 mmol/L (23-31); Estimated GFR 63; Glucose 273 mg/dL (80-115); Potassium 5.3 mmol/L (3.5-5.1)
[2022-05-23 06:49] LABS: Chloride 102 mmol/L (98-107); Sodium 133 mmol/L (136-145)
[2022-05-23] MEDS: Gabapentin 300 MG CAP PO SCH ×2 (10:13→19:44)
[2022-05-23] MEDS: Ascorbic Acid 500 mg Chewable Tablet PO SCH (10:13)
[2022-05-23] MEDS: Dexamethasone 4 mg/ml Vial SLOW IVP SCH (10:14)
[2022-05-23] MEDS: Zinc Sulfate 220 MG CAP PO SCH (10:14)
[2022-05-23] MEDS: metFORMIN 500 MG TAB PO SCH ×2 (10:14→19:43)
[2022-05-23] MEDS: Famotidine 20 MG TAB PO SCH ×2 (10:14→19:43)
[2022-05-23] MEDS ORDERED: Dextrose 50% Abboject 50 ML SYRINGE SLOW IVP SCH (15:15)
[2022-05-23] MEDS ORDERED: Insulin Regular 300 UNITS/3 ML VIAL IVP SCH (15:15)
[2022-05-23] MEDS: Azithromycin 500 MG in Sodium Chloride 0.9% 250 ML 250 ML IVPB SCH (17:03)
[2022-05-23] MEDS: Nicotine 14 MG PATCH TD SCH (17:09)
[2022-05-23] MEDS: cefTRIAXone\\ROCEPHIN 2 GM in Sodium Chloride 0.9% 100 ML IVPB SCH (18:55)
[2022-05-23] MEDS: Atorvastatin Calcium 20 MG TAB PO SCH (19:43)
[2022-05-23] MEDS: REMDESIVIR 100 MG in Sodium Chloride 0.9% 250 ML 230 ML IV SCH (19:46)
[2022-05-23 20:51] LABS: Potassium 4.5 mmol/L (3.5-5.1)
[2022-05-24] MEDS: Albuterol 200 PUFF (6.7GM INHALER) INH SCH ×4 (02:17→20:34)
[2022-05-24 06:29] LABS: #Eosinphils 0.3 thou/uL (0.0-0.7); #Lymphocytes 2.2 thou/uL (1.20-3.40); #Monocytes 0.6 thou/uL (0.11-0.59); #Neutrophils 4.8 thou/uL (1.40-6.50); %Basophils 0.2 % (0.0-1.0); %Eosinophils 3.5 % (0.0-10.0); %Lymphocytes 28.1 % (21.0-51.0); %Monocytes 7.7 % (0.0-10.0); %Neutrophils 60.5 % (42.0-75.0); Hemoglobin 11.8 g/dL (14.0-18.0); Mean Corpuscular HGB CONC 33.8 g/dL (32.0-36.0); Mean Corpuscular Hemoglobin 30.8 pg (27.0-31.0); Mean Corpuscular Volume 91.2 fl (78.0-98.0); Mean Platelet Volume 9.2 fL (7.4-10.4); Platelet Count 165 10x3/uL (130-400); RBC Distribution Width 12.3 % (11.5-14.5); Red Blood Cell (RBC) Count 3.83 mill/uL (4.70-6.10)
[2022-05-24 06:49] LABS: ALT (SGPT) 16 U/L (8-55); AST (SGOT) 13 U/L (5-34); Anion Gap 15 mmol/L (10-20); BUN (Urea Nitrogen) 20 mg/dL (8.4-25.7); Calc. Creatinine Clearance 85 mL/min (70-130); Carbon Dioxide 21 mmol/L (23-31); Chloride 104 mmol/L (98-107); Estimated GFR 74; Glucose 237 mg/dL (80-115); Potassium 3.9 mmol/L (3.5-5.1); Sodium 136 mmol/L (136-145)
[2022-05-24] MEDS: Gabapentin 300 MG CAP PO SCH ×2 (08:45→20:33)
[2022-05-24] MEDS: Zinc Sulfate 220 MG CAP PO SCH (08:46)
[2022-05-24] MEDS: metFORMIN 500 MG TAB PO SCH ×2 (08:46→20:33)
[2022-05-24] MEDS: Ascorbic Acid 500 mg Chewable Tablet PO SCH (08:46)
[2022-05-24] MEDS: Dexamethasone 4 mg/ml Vial SLOW IVP SCH (08:46)
[2022-05-24] MEDS: Famotidine 20 MG TAB PO SCH ×2 (08:47→20:33)
[2022-05-24] MEDS: Nicotine 14 MG PATCH TD SCH (15:14)
[2022-05-24] MEDS: Cefdinir 300 MG CAP PO SCH (20:33)
[2022-05-24] MEDS: Atorvastatin Calcium 20 MG TAB PO SCH (20:34)
[2022-05-24] MEDS: REMDESIVIR 100 MG in Sodium Chloride 0.9% 250 ML 230 ML IV SCH (20:43)
[2022-05-25] MEDS: Albuterol 200 PUFF (6.7GM INHALER) INH SCH ×2 (02:11→05:40)
[2022-05-25 07:37] LABS: #Eosinphils 0.5 thou/uL (0.0-0.7); #Lymphocytes 3.1 thou/uL (1.20-3.40); #Monocytes 0.8 thou/uL (0.11-0.59); #Neutrophils 6.1 thou/uL (1.40-6.50); %Basophils 0.3 % (0.0-1.0); %Eosinophils 4.4 % (0.0-10.0); %Lymphocytes 29.5 % (21.0-51.0); %Monocytes 7.6 % (0.0-10.0); %Neutrophils 58.3 % (42.0-75.0); Hemoglobin 10.9 g/dL (14.0-18.0); Mean Corpuscular HGB CONC 33.1 g/dL (32.0-36.0); Mean Corpuscular Volume 90.6 fl (78.0-98.0); Mean Platelet Volume 9.3 fL (7.4-10.4); Platelet Count 170 10x3/uL (130-400); RBC Distribution Width 12.3 % (11.5-14.5); Red Blood Cell (RBC) Count 3.63 mill/uL (4.70-6.10); White Blood Cell (WBC) Count 10.5 10x3/uL (4.8-10.8)
[2022-05-25 08:00] LABS: ALT (SGPT) 16 U/L (8-55); AST (SGOT) 12 U/L (5-34); Anion Gap 13 mmol/L (10-20); BUN (Urea Nitrogen) 20 mg/dL (8.4-25.7); Calc. Creatinine Clearance 89 mL/min (70-130); Calcium 8.8 mg/dL (7.8-10.44); Carbon Dioxide 25 mmol/L (23-31); Chloride 106 mmol/L (98-107); Estimated GFR 78; Glucose 95 mg/dL (80-115); Potassium 3.7 mmol/L (3.5-5.1); Sodium 140 mmol/L (136-145)
[2022-05-25 08:24] VITALS: BP 108/76; TEMP 97.6
[2022-05-25] MEDS: Ascorbic Acid 500 mg Chewable Tablet PO SCH (08:40)
[2022-05-25] MEDS: Cefdinir 300 MG CAP PO SCH (08:41)
[2022-05-25] MEDS: metFORMIN 500 MG TAB PO SCH (08:41)
[2022-05-25] MEDS: Gabapentin 300 MG CAP PO SCH (08:41)
[2022-05-25] MEDS: Dexamethasone 4 mg/ml Vial SLOW IVP SCH (08:41)
[2022-05-25] MEDS: Famotidine 20 MG TAB PO SCH (08:41)
[2022-05-25] MEDS: Zinc Sulfate 220 MG CAP PO SCH (08:41)
[2022-05-25] MEDS: REMDESIVIR 100 MG in Sodium Chloride 0.9% 250 ML 230 ML IV SCH (12:02)
== END 2022-05-25 14:10 | disposition home or self-care (01) | DRG 177 ==
LOC: ERS 15:01 → T4-A 17:25 → OBSVTOIN 05-22 11:16
PROVIDERS: ADMIT Student in an Organized Health Care Education/Training Program; ATTEND Internal Medicine
PROC: 8E0ZXY6 Isolation (ICD-10-PCS; principal; 2022-05-22)
PROC: XW033E5 Introduction of Remdesivir Anti-infective into Peripheral Vein, Percutaneous Approach, New Technology Group 5 (ICD-10-PCS; 2022-05-22)
DX: U07.1 COVID-19 (principal); J12.82 Pneumonia due to coronavirus disease 2019; J96.01 Acute respiratory failure with hypoxia; E87.1 Hypo-osmolality and hyponatremia; N17.9 Acute kidney failure, unspecified; E78.5 Hyperlipidemia, unspecified; E11.40 Type 2 diabetes mellitus with diabetic neuropathy, unspecified; F17.210 Nicotine dependence, cigarettes, uncomplicated; E87.5 Hyperkalemia; I12.9 Hypertensive chronic kidney disease with stage 1 through stage 4 chronic kidney disease, or unspecified chronic kidney disease; N18.2 Chronic kidney disease, stage 2 (mild); E11.22 Type 2 diabetes mellitus with diabetic chronic kidney disease; Z79.84 Long term (current) use of oral hypoglycemic drugs; Z79.899 Other long term (current) drug therapy
CPT/HCPCS: 36415; 36416; 71045; 71275; 80048; 80053; 83605; 83880; 84450; 84460; 84484; 85025; 87040; 87804; 93005; 94640; J0248; J0456; J0696; J1100; J1815; J3490; J7050; J7620; J7999; Q9967; U0002

== ENCOUNTER 2022-07-14 15:09 | Outpatient (CLI) | payer BC, OTHER | END 2022-07-14 15:10 | disposition home or self-care (01) | LOC: ULT 15:09 | PROVIDERS: ATTEND Family Medicine | DX: E07.9 Disorder of thyroid, unspecified (principal); E04.2 Nontoxic multinodular goiter | CPT/HCPCS: 76536 ==

== ENCOUNTER 2022-11-19 13:53 | Outpatient (CLI) | payer OTHER | END 2022-11-19 13:54 | disposition home or self-care (01) | LOC: RAD 13:53 | PROVIDERS: ATTEND Family Medicine | DX: M25.512 Pain in left shoulder (principal) ==

== ENCOUNTER 2023-04-09 08:35 | Emergency (ER) | payer OTHER ==
[2023-04-09] MEDS ORDERED: Morphine 4 MG/ML VIAL ONE (09:20)
[2023-04-09] MEDS ORDERED: Cefepime 2 GM VIAL ONE (09:22)
[2023-04-09] MEDS ORDERED: Sodium Chloride 0.9% 100 ML ONE (09:23)
[2023-04-09 09:36] LABS: #Basophils 0.1 thou/uL (0.0-0.2); #Eosinphils 0.3 thou/uL (0.0-0.7); #Monocytes 0.5 thou/uL (0.11-0.59); #Neutrophils 4.5 thou/uL (1.40-6.50); %Basophils 0.8 % (0.0-1.0); %Eosinophils 4.7 % (0.0-10.0); %Lymphocytes 23.8 % (21.0-51.0); %Monocytes 6.8 % (0.0-10.0); %Neutrophils 62.9 % (42.0-75.0); Hematocrit 39.3 % (42.0-52.0); Hemoglobin 12.7 g/dL (14.0-18.0); Mean Corpuscular HGB CONC 32.3 g/dL (32.0-36.0); Mean Corpuscular Hemoglobin 27.8 pg (27.0-31.0); Mean Platelet Volume 11.7 fL (7.4-10.4); Platelet Count 255 10x3/uL (130-400); RBC Distribution Width 12.8 % (11.5-14.5); Red Blood Cell (RBC) Count 4.57 mill/uL (4.70-6.10); White Blood Cell (WBC) Count 7.2 10x3/uL (4.8-10.8)
[2023-04-09] MEDS ORDERED: Vancomycin (BATCH) 2 GM in Premix 1 BAG IVPB SCH (10:00)
[2023-04-09 10:01] LABS: ALT (SGPT) 21 U/L (8-55); AST (SGOT) 15 U/L (5-34); Albumin 4.5 g/dL (3.4-4.8); Alkaline Phosphatase 104 U/L (40-110); Anion Gap 14 mmol/L (10-20); BUN (Urea Nitrogen) 17 mg/dL (8.4-25.7); Bilirubin, Total 0.3 mg/dL (0.2-1.2); Calc. Creatinine Clearance 0 mL/min (70-130); Calcium 9.1 mg/dL (7.8-10.44); Carbon Dioxide 22 mmol/L (23-31); Chloride 104 mmol/L (98-107); Estimated GFR 62; Globulin 3.6 g/dL (2.4-3.5); Glucose 231 mg/dL (80-115); Potassium 4.2 mmol/L (3.5-5.1); Protein, Total 8.1 g/dL (5.8-8.1); Sodium 136 mmol/L (136-145)
== END 2023-04-09 10:48 | disposition home or self-care (01) ==
LOC: ERS 08:35
DX: L73.9 Follicular disorder, unspecified (principal); L03.314 Cellulitis of groin; E11.9 Type 2 diabetes mellitus without complications; E78.5 Hyperlipidemia, unspecified; F17.210 Nicotine dependence, cigarettes, uncomplicated; Z79.899 Other long term (current) drug therapy
CPT/HCPCS: 36415; 80053; 85025; 87040; 96365; 96366; 96367; 96375; J0692; J2270; J3370; J3490

== ENCOUNTER 2023-06-18 09:34 | Inpatient (IN) | payer OTHER ==
[2023-06-18 10:42] LABS: #Eosinphils 0.3 thou/uL (0.0-0.7); #Monocytes 0.7 thou/uL (0.11-0.59); #Neutrophils 5.7 thou/uL (1.40-6.50); %Basophils 0.5 % (0.0-1.0); %Eosinophils 3.7 % (0.0-10.0); %Lymphocytes 16.7 % (21.0-51.0); %Monocytes 8.1 % (0.0-10.0); %Neutrophils 70.4 % (42.0-75.0); Hematocrit 36.6 % (42.0-52.0); Hemoglobin 11.7 g/dL (14.0-18.0); Mean Corpuscular Hemoglobin 28.3 pg (27.0-31.0); Mean Corpuscular Volume 88.4 fl (78.0-98.0); Mean Platelet Volume 11.1 fL (7.4-10.4); Platelet Count 200 10x3/uL (130-400); RBC Distribution Width 13.4 % (11.5-14.5); Red Blood Cell (RBC) Count 4.14 mill/uL (4.70-6.10); White Blood Cell (WBC) Count 8.1 10x3/uL (4.8-10.8)
[2023-06-18] MEDS ORDERED: Morphine 4 MG/ML VIAL ONE (10:48)
[2023-06-18] MEDS ORDERED: Ketorolac Tromethamine 30 MG (1 mL) VIAL ONE (10:48)
[2023-06-18 11:06] LABS: ALT (SGPT) 17 U/L (8-55); AST (SGOT) 12 U/L (5-34); Albumin 3.9 g/dL (3.4-4.8); Alkaline Phosphatase 100 U/L (40-110); Anion Gap 12 mmol/L (10-20); BUN (Urea Nitrogen) 19 mg/dL (8.4-25.7); Bilirubin, Total 0.2 mg/dL (0.2-1.2); Calc. Creatinine Clearance 0 mL/min (70-130); Calcium 9.4 mg/dL (7.8-10.44); Carbon Dioxide 24 mmol/L (23-31); Chloride 105 mmol/L (98-107); Estimated GFR 63; Globulin 3.3 g/dL (2.4-3.5); Glucose 228 mg/dL (80-115); Potassium 4.5 mmol/L (3.5-5.1); Protein, Total 7.2 g/dL (5.8-8.1); Sodium 136 mmol/L (136-145)
[2023-06-18] MEDS ORDERED: Cefepime 2 GM VIAL ONE (13:34)
[2023-06-18] MEDS ORDERED: Sodium Chloride 0.9% 100 ML ONE (13:34)
[2023-06-18] MEDS ORDERED: Vancomycin 1 GM/200 ML (FROZEN) BAG ONE (13:34)
[2023-06-18] MEDS ORDERED: Dextrose 5% in Water 1,000 ML IV PRN (14:41)
[2023-06-18] MEDS ORDERED: Glucagon 1 MG/ML KIT IM PRN (14:41)
[2023-06-18] MEDS ORDERED: Dextrose 50% Abboject 50 ML SYRINGE SLOW IVP PRN (14:41)
[2023-06-18] MEDS ORDERED: HumaLOG 300 UNITS/3 ML VIAL SC PRN ×2 (14:41)
[2023-06-18] MEDS: Acetaminophen 500 MG TAB PO SCH ×3 (16:15→20:48)
[2023-06-18 16:59] VITALS: BMI 27.7
[2023-06-18] MEDS: Lactated Ringer's 1,000 ML IV SCH ×2 (18:09→20:46)
[2023-06-18] MEDS: CEFAZOLIN 2 GM in Sodium Chloride 0.9% 100 ML IVPB SCH (20:41)
[2023-06-18] MEDS ORDERED: Vancomycin 1 GM in Premix 1 BAG IVPB SCH (21:00)
[2023-06-18] MEDS ORDERED: Cefepime 2 GM in Sodium Chloride 0.9% 100 ML IVPB SCH (21:00)
[2023-06-19] MEDS: oxyCODONE 5 MG TAB PO PRN ×3 (03:47→15:01)
[2023-06-19] MEDS: CEFAZOLIN 2 GM in Sodium Chloride 0.9% 100 ML IVPB SCH (05:58)
[2023-06-19] MEDS: Lactated Ringer's 1,000 ML IV SCH ×3 (05:59→20:28)
[2023-06-19] MEDS: Enoxaparin 40 MG (0.4 mL) SYRINGE SC SCH (08:06)
[2023-06-19] MEDS: Acetaminophen 500 MG TAB PO SCH ×3 (08:43→20:29)
[2023-06-19 10:54] LABS: #Basophils 0.1 thou/uL (0.0-0.2); #Eosinphils 0.4 thou/uL (0.0-0.7); #Monocytes 0.6 thou/uL (0.11-0.59); %Basophils 0.8 % (0.0-1.0); %Eosinophils 5.7 % (0.0-10.0); %Lymphocytes 18.2 % (21.0-51.0); %Monocytes 8.2 % (0.0-10.0); %Neutrophils 66.7 % (42.0-75.0); Hematocrit 34.6 % (42.0-52.0); Hemoglobin 10.8 g/dL (14.0-18.0); Mean Corpuscular HGB CONC 31.2 g/dL (32.0-36.0); Mean Corpuscular Hemoglobin 27.7 pg (27.0-31.0); Mean Corpuscular Volume 88.7 fl (78.0-98.0); Mean Platelet Volume 12.1 fL (7.4-10.4); Platelet Count 187 10x3/uL (130-400); RBC Distribution Width 13.3 % (11.5-14.5); White Blood Cell (WBC) Count 7.5 10x3/uL (4.8-10.8)
[2023-06-19 11:23] LABS: Anion Gap 10 mmol/L (10-20); BUN (Urea Nitrogen) 15 mg/dL (8.4-25.7); Calc. Creatinine Clearance 92 mL/min (70-130); Calcium 8.6 mg/dL (7.8-10.44); Carbon Dioxide 24 mmol/L (23-31); Chloride 103 mmol/L (98-107); Estimated GFR 75; Glucose 186 mg/dL (80-115); Potassium 3.9 mmol/L (3.5-5.1); Sodium 133 mmol/L (136-145)
[2023-06-19] MEDS ORDERED: Meropenem 1 GM in Sodium Chloride 0.9% 100 ML IVPB SCH ×2 (13:30→14:00)
[2023-06-19] MEDS ORDERED: Vancomycin (BATCH) 2 GM in Premix 1 BAG IVPB SCH (13:30)
[2023-06-19] MEDS: metFORMIN 500 MG TAB PO SCH (20:29)
[2023-06-19] MEDS: Gabapentin 300 MG CAP PO SCH (20:29)
[2023-06-19] MEDS: Atorvastatin Calcium 20 MG TAB PO SCH (20:30)
[2023-06-19] MEDS: Meropenem 1 GM in Sodium Chloride 0.9% 100 ML IVPB SCH (22:26)
[2023-06-20] MEDS: oxyCODONE 5 MG TAB PO PRN (02:21)
[2023-06-20] MEDS: Vancomycin 1 GM in Premix 1 BAG IVPB SCH ×2 (02:22→13:12)
[2023-06-20] MEDS: Meropenem 1 GM in Sodium Chloride 0.9% 100 ML IVPB SCH ×3 (06:18→23:14)
[2023-06-20] MEDS: Lactated Ringer's 1,000 ML IV SCH ×3 (07:20→23:45)
[2023-06-20] MEDS: Enoxaparin 40 MG (0.4 mL) SYRINGE SC SCH (07:21)
[2023-06-20] MEDS ORDERED: Bupivacaine 0.25% HCL 30 ML VIAL ONE (07:34)
[2023-06-20] MEDS ORDERED: Bacitracin Zinc Ointment 30 gm TUBE ONE (07:34)
[2023-06-20] MEDS ORDERED: PROPOFOL 20 ML ONE (08:04)
[2023-06-20] MEDS ORDERED: fentaNYL PF 100 MCG/2 ML SYRINGE ONE ×3 (08:04→09:18)
[2023-06-20] MEDS ORDERED: Ondansetron PF 4 MG/2 ML Vial ONE (08:06)
[2023-06-20] MEDS ORDERED: Lidocaine 1% PF 5 ML VIAL ONE (08:06)
[2023-06-20] MEDS ORDERED: Ondansetron HCl/PF 4 MG/2 ML Vial IVP PRN (08:59)
[2023-06-20] MEDS ORDERED: Promethazine HCl 25 MG/ML VIAL IM PRN (08:59)
[2023-06-20] MEDS ORDERED: fentaNYL 50 mcg/mL 1 mL Vial ONE (09:32)
[2023-06-20] MEDS: glyBURIDE 5 MG TAB PO SCH (10:01)
[2023-06-20] MEDS: Acetaminophen 500 MG TAB PO SCH ×3 (10:01→20:41)
[2023-06-20] MEDS: Gabapentin 300 MG CAP PO SCH ×2 (10:02→20:41)
[2023-06-20] MEDS: metFORMIN 500 MG TAB PO SCH ×2 (10:02→20:42)
[2023-06-20] MEDS ORDERED: Morphine 4 MG/ML VIAL SLOW IVP PRN (10:10)
[2023-06-20] MEDS ORDERED: Morphine 4 MG/ML VIAL SLOW IVP SCH (11:15)
[2023-06-20 12:26] LABS: #Eosinphils 0.3 thou/uL (0.0-0.7); #Monocytes 0.5 thou/uL (0.11-0.59); #Neutrophils 4.6 thou/uL (1.40-6.50); %Basophils 0.6 % (0.0-1.0); %Eosinophils 4.4 % (0.0-10.0); %Lymphocytes 17.4 % (21.0-51.0); %Monocytes 7.3 % (0.0-10.0); %Neutrophils 69.7 % (42.0-75.0); Hematocrit 35.8 % (42.0-52.0); Hemoglobin 11.5 g/dL (14.0-18.0); Mean Corpuscular HGB CONC 32.1 g/dL (32.0-36.0); Mean Corpuscular Hemoglobin 28.3 pg (27.0-31.0); Platelet Count 191 10x3/uL (130-400); RBC Distribution Width 13.3 % (11.5-14.5); Red Blood Cell (RBC) Count 4.07 mill/uL (4.70-6.10); White Blood Cell (WBC) Count 6.6 10x3/uL (4.8-10.8)
[2023-06-20 12:43] LABS: Anion Gap 13 mmol/L (10-20); BUN (Urea Nitrogen) 12 mg/dL (8.4-25.7); Calc. Creatinine Clearance 93 mL/min (70-130); Calcium 8.8 mg/dL (7.8-10.44); Carbon Dioxide 26 mmol/L (23-31); Chloride 101 mmol/L (98-107); Estimated GFR 75; Glucose 158 mg/dL (80-115); Potassium 4.3 mmol/L (3.5-5.1); Sodium 136 mmol/L (136-145)
[2023-06-20] MEDS: Atorvastatin Calcium 20 MG TAB PO SCH (20:41)
[2023-06-21] MEDS: Vancomycin 1 GM in Premix 1 BAG IVPB SCH (02:23)
[2023-06-21] MEDS: Lactated Ringer's 1,000 ML IV SCH (06:00)
[2023-06-21] MEDS: Meropenem 1 GM in Sodium Chloride 0.9% 100 ML IVPB SCH ×2 (06:17→16:03)
[2023-06-21 07:06] LABS: #Eosinphils 0.4 thou/uL (0.0-0.7); #Monocytes 0.6 thou/uL (0.11-0.59); #Neutrophils 4.7 thou/uL (1.40-6.50); %Basophils 0.6 % (0.0-1.0); %Eosinophils 5.7 % (0.0-10.0); %Lymphocytes 18.8 % (21.0-51.0); %Monocytes 7.8 % (0.0-10.0); %Neutrophils 66.7 % (42.0-75.0); Hematocrit 34.4 % (42.0-52.0); Hemoglobin 10.9 g/dL (14.0-18.0); Mean Corpuscular HGB CONC 31.7 g/dL (32.0-36.0); Mean Corpuscular Hemoglobin 27.9 pg (27.0-31.0); Mean Corpuscular Volume 88.2 fl (78.0-98.0); Mean Platelet Volume 12.2 fL (7.4-10.4); Platelet Count 201 10x3/uL (130-400); RBC Distribution Width 13.2 % (11.5-14.5)
[2023-06-21 07:28] LABS: Anion Gap 11 mmol/L (10-20); BUN (Urea Nitrogen) 12 mg/dL (8.4-25.7); Calc. Creatinine Clearance 97 mL/min (70-130); Calcium 8.5 mg/dL (7.8-10.44); Carbon Dioxide 26 mmol/L (23-31); Chloride 104 mmol/L (98-107); Estimated GFR 80; Glucose 178 mg/dL (80-115); Potassium 4.3 mmol/L (3.5-5.1); Sodium 137 mmol/L (136-145)
[2023-06-21] MEDS: Acetaminophen 500 MG TAB PO SCH ×3 (08:37→21:22)
[2023-06-21] MEDS: Enoxaparin 40 MG (0.4 mL) SYRINGE SC SCH (08:37)
[2023-06-21] MEDS: glyBURIDE 5 MG TAB PO SCH (08:37)
[2023-06-21] MEDS: metFORMIN 500 MG TAB PO SCH ×2 (08:37→21:24)
[2023-06-21] MEDS: Gabapentin 300 MG CAP PO SCH ×2 (08:37→21:22)
[2023-06-21] MEDS ORDERED: Docusate 100 MG CAP PO PRN (09:21)
[2023-06-21] MEDS ORDERED: Polyethylene Glycol 3350 17 GM Packet PO PRN (09:22)
[2023-06-21] MEDS ORDERED: Vancomycin 1 GM in Premix 1 BAG IVPB SCH ×2 (10:30→14:00)
[2023-06-21] MEDS ORDERED: Ampicillin/Sulbactam 1.5 GM in Sodium Chloride 0.9% 100 ML IVPB SCH (18:00)
[2023-06-21] MEDS: Ampicillin/Sulbactam 3 GM in Sodium Chloride 0.9% 100 ML IVPB SCH (18:14)
[2023-06-21] MEDS: Atorvastatin Calcium 20 MG TAB PO SCH (21:21)
[2023-06-22] MEDS: Ampicillin/Sulbactam 3 GM in Sodium Chloride 0.9% 100 ML IVPB SCH ×3 (01:13→11:49)
[2023-06-22 04:14] LABS: #Basophils 0.1 thou/uL (0.0-0.2); #Eosinphils 0.4 thou/uL (0.0-0.7); #Monocytes 0.8 thou/uL (0.11-0.59); #Neutrophils 4.8 thou/uL (1.40-6.50); %Basophils 0.6 % (0.0-1.0); %Eosinophils 5.1 % (0.0-10.0); %Lymphocytes 23.1 % (21.0-51.0); %Monocytes 10.6 % (0.0-10.0); %Neutrophils 60.1 % (42.0-75.0); Hematocrit 34.2 % (42.0-52.0); Hemoglobin 10.7 g/dL (14.0-18.0); Mean Corpuscular HGB CONC 31.3 g/dL (32.0-36.0); Mean Corpuscular Hemoglobin 27.8 pg (27.0-31.0); Mean Corpuscular Volume 88.8 fl (78.0-98.0); Platelet Count 203 10x3/uL (130-400); RBC Distribution Width 13.2 % (11.5-14.5); Red Blood Cell (RBC) Count 3.85 mill/uL (4.70-6.10); White Blood Cell (WBC) Count 7.9 10x3/uL (4.8-10.8)
[2023-06-22 04:59] LABS: Anion Gap 16 mmol/L (10-20); BUN (Urea Nitrogen) 13 mg/dL (8.4-25.7); Calc. Creatinine Clearance 81 mL/min (70-130); Calcium 9.2 mg/dL (7.8-10.44); Carbon Dioxide 22 mmol/L (23-31); Chloride 104 mmol/L (98-107); Estimated GFR 65; Glucose 274 mg/dL (80-115); Potassium 4.6 mmol/L (3.5-5.1); Sodium 137 mmol/L (136-145)
[2023-06-22] MEDS: Acetaminophen 500 MG TAB PO SCH ×2 (07:49→15:16)
[2023-06-22] MEDS: Gabapentin 300 MG CAP PO SCH (07:49)
[2023-06-22] MEDS: glyBURIDE 5 MG TAB PO SCH (07:50)
[2023-06-22] MEDS: metFORMIN 500 MG TAB PO SCH (07:50)
[2023-06-22] MEDS: Enoxaparin 40 MG (0.4 mL) SYRINGE SC SCH (07:51)
[2023-06-22 09:04] VITALS: BP 145/70; TEMP 98
== END 2023-06-22 16:49 | disposition home or self-care (01) | DRG 717 ==
LOC: ERS 09:34 → T4-A 15:41
PROVIDERS: ADMIT Hospitalist; ATTEND Emergency Medicine
PROC: 0V950ZZ Drainage of Scrotum, Open Approach (ICD-10-PCS; principal; 2023-06-20)
DX: N49.2 Inflammatory disorders of scrotum (principal); B37.89 Other sites of candidiasis; L03.315 Cellulitis of perineum; I11.0 Hypertensive heart disease with heart failure; I50.9 Heart failure, unspecified; F17.210 Nicotine dependence, cigarettes, uncomplicated; R61 Generalized hyperhidrosis; R63.4 Abnormal weight loss; R63.0 Anorexia; B95.4 Other streptococcus as the cause of diseases classified elsewhere; L73.2 Hidradenitis suppurativa; E11.40 Type 2 diabetes mellitus with diabetic neuropathy, unspecified; Z68.27 Body mass index [BMI] 27.0-27.9, adult; Z71.84 Encounter for health counseling related to travel; Z79.82 Long term (current) use of aspirin; Z98.890 Other specified postprocedural states; Z83.3 Family history of diabetes mellitus; Z79.899 Other long term (current) drug therapy
CPT/HCPCS: 36415; 36416; 72193; 80048; 80053; 80202; 83605; 85025; 87070; 87077; 87186; 87205; 96365; 96375; 97139; J0295; J0692; J1815; J1885; J2185; J2270; J2405; J2704; J3010; J3370; J3370-JW; J3490; J7120; S0020

== ENCOUNTER 2025-04-12 10:59 | Outpatient (CLI) | payer OTHER | END 2025-04-12 11:00 | disposition home or self-care (01) | LOC: BICRAD 10:59 | PROVIDERS: ATTEND Family Medicine | DX: M54.50 Low back pain, unspecified (principal); M47.816 Spondylosis without myelopathy or radiculopathy, lumbar region; M47.817 Spondylosis without myelopathy or radiculopathy, lumbosacral region; M43.16 Spondylolisthesis, lumbar region; M43.17 Spondylolisthesis, lumbosacral region; M41.9 Scoliosis, unspecified; M51.86 Other intervertebral disc disorders, lumbar region; M51.87 Other intervertebral disc disorders, lumbosacral region | CPT/HCPCS: 72100 ==

== ENCOUNTER 2025-05-21 11:58 | Emergency (ER) | payer OTHER ==
[2025-05-21] MEDS ORDERED: Iopamidol-370 76% 500 ML MDV (1 ML CHARGE) ONE (13:22)
[2025-05-21] MEDS ORDERED: Acetaminophen 500 MG TAB ONE (14:32)
[2025-05-21 15:29] LABS: #Basophils 0.05 10x3/uL (0.0-0.2); #Eosinophils 0.23 10x3/uL (0.0-0.7); #Monocytes 0.51 10x3/uL (0.11-0.59); #Neutrophils 4.09 10x3/uL (1.40-6.50); %Basophils 0.8 % (0.0-1.0); %Eosinophils 3.5 % (0.0-10.0); %Lymphocytes 24.4 % (21.0-51.0); %Monocytes 7.8 % (0.0-10.0); %Neutrophils 62.9 % (42.0-75.0); Hematocrit 35.4 % (42.0-52.0); Hemoglobin 11.6 g/dL (14.0-18.0); Mean Corpuscular Hemoglobin 29.1 pg (27.0-31.0); Mean Corpuscular Volume 88.9 fL (78.0-98.0); Platelet Count 166 10x3/uL (130-400); Red Blood Cell (RBC) Count 3.98 mill/uL (4.70-6.10); White Blood Cell (WBC) Count 6.51 10x3/uL (4.8-10.8)
[2025-05-21 15:46] LABS: ALT (SGPT) 12 U/L (Less than 45); AST (SGOT) 18 U/L (11-34); Albumin 3.0 g/dL (3.1-4.5); Alkaline Phosphatase 105 U/L (40-110); Anion Gap 11 mmol/L (10-20); BUN (Urea Nitrogen) 12 mg/dL (8.4-25.7); Bilirubin, Total 0.5 mg/dL (0.3-1.2); Calc. Creatinine Clearance 0 mL/min (70-130); Calcium 7.8 mg/dL (7.8-10.44); Carbon Dioxide 19 mmol/L (23-31); Chloride 114 mmol/L (98-107); Globulin 2.8 g/dL (2.4-3.5); Glucose 112 mg/dL (80-115); Potassium 4.1 mmol/L (3.5-5.1); Sodium 140 mmol/L (136-145)
== END 2025-05-21 17:22 | disposition home or self-care (01) ==
LOC: ERS 11:58
DX: M53.84 Other specified dorsopathies, thoracic region (principal); E11.40 Type 2 diabetes mellitus with diabetic neuropathy, unspecified; R79.89 Other specified abnormal findings of blood chemistry; F17.210 Nicotine dependence, cigarettes, uncomplicated
CPT/HCPCS: 71045; 71275; 80053; 83880; 84484; 85025; 87428; Q9967